=== PATIENT | male | born 1935 | race Caucasian/White ===

== ENCOUNTER → 2018-03-27 | Outpatient (CLI) | payer MEDICARE ==
[~2018-03-27] MED LIST: ALLO300 PO; AMLO5 PO; ASPI81CH PO; BLOOD PRESSURE MED; Cinnamon500 MG; DOXA1 PO; FISH1000 PO; Flomax0.4 MG PO; HYDACE5 PO; HYOS0.375T PO; INDO50 PO; MAGOXI400; Multiple Vitam1 EAC1; OMEP20ER PO; Prinivil10 MG PO; SOLI5
== END ==
LOC: PLD 12:28 → LAB SHORT 12:28
DX: D48.5 Neoplasm of uncertain behavior of skin (principal)
CPT/HCPCS: 88305; 88312

== ENCOUNTER 2018-10-02 07:10 | Day surgery (SDC) | payer MEDICARE ==
[~2018-10-02] VITALS: Ht 175.3 cm; Wt 89.3 kg
== END 2018-10-02 08:44 | disposition home or self-care (01) ==
LOC: ORSCSDS 07:10
PROVIDERS: Internal Medicine Gastroenterology
PROC: 0D758ZZ Dilation of Esophagus, Via Natural or Artificial Opening Endoscopic (ICD-10-PCS; principal; 2018-10-02 08:30)
PROC: 0DB58ZX Excision of Esophagus, Via Natural or Artificial Opening Endoscopic, Diagnostic (ICD-10-PCS; principal; 2018-10-02 08:30)
PROC: 0DB68ZX Excision of Stomach, Via Natural or Artificial Opening Endoscopic, Diagnostic (ICD-10-PCS; principal; 2018-10-02 08:30)
DX: R13.10 Dysphagia, unspecified (principal); K21.9 Gastro-esophageal reflux disease without esophagitis; K22.70 Barrett's esophagus without dysplasia; K31.7 Polyp of stomach and duodenum; K44.9 Diaphragmatic hernia without obstruction or gangrene; I10 Essential (primary) hypertension; G20 Parkinson's disease; Z79.82 Long term (current) use of aspirin; E78.00 Pure hypercholesterolemia, unspecified; Z79.899 Other long term (current) drug therapy
CPT/HCPCS: 88305; 88342; J7120

== ENCOUNTER 2019-05-12 06:34 | Day surgery (SDC) | payer MEDICARE ==
[~2019-05-12] VITALS: Ht 172.7 cm; Wt 84.3 kg
[~2019-05-12 06:34] MED LIST changes: +ALLO100 PO; +Cinnamon500 MG PO; +FLAX FISH PO; +MOTRIN IB200 MG PO; +MYRBETRIQ25 MG; +MYRBETRIQ50 MG PO; +Miralax17 GM PO; +NYSTRITC; +Nystatin15 GM TOP; +RYTARY ER 36.21 EACH PO; +RYTARY ER 61.21 EACH; +TAMS.4ER PO; +[UNRECOGNIZED DRUG - OTHER] PO
--- NOTE | 2019-05-12 07:42 | NUR ---
05/12/19 0742 LUCIANO BEAULIEU 1 IV ATTEMPT VEIN BLEW BY MARÍA ELENA 2 IV ATTEMPT VEIN BLEW BY MARÍA ELENA 3RD ATTEMPT SUCCESSFUL BY RN
--- NOTE | 2019-05-12 10:51 | NUR ---
05/12/19 1051 Maddie Tomlinson SIMETHICONE USED DURING PROCEDURE.
== END 2019-05-12 12:00 | disposition home or self-care (01) ==
LOC: ORSCSDS 06:34
PROVIDERS: Internal Medicine Gastroenterology
PROC: 0DBM8ZX Excision of Descending Colon, Via Natural or Artificial Opening Endoscopic, Diagnostic (ICD-10-PCS; principal; 2019-05-12 08:00)
PROC: 0DBK8ZX Excision of Ascending Colon, Via Natural or Artificial Opening Endoscopic, Diagnostic (ICD-10-PCS; principal; 2019-05-12 08:00)
DX: Z12.11 Encounter for screening for malignant neoplasm of colon (principal); Z86.010 Personal history of colon polyps; D12.2 Benign neoplasm of ascending colon; D12.4 Benign neoplasm of descending colon; K57.30 Diverticulosis of large intestine without perforation or abscess without bleeding; K64.8 Other hemorrhoids; I10 Essential (primary) hypertension; G20 Parkinson's disease; E78.00 Pure hypercholesterolemia, unspecified; Z79.899 Other long term (current) drug therapy; Z79.82 Long term (current) use of aspirin
CPT/HCPCS: 88305; J2405; J2704; J7120

== ENCOUNTER → 2021-05-05 | Outpatient (CLI) | payer MEDICARE ==
[2021-05-11 13:59] LABS: Stool Occult Bld Immuno 1 Negative (NEGATIVE)
== END | disposition home or self-care (01) ==
LOC: LAB SHORT 10:30
PROVIDERS: Family Medicine
DX: Z12.11 Encounter for screening for malignant neoplasm of colon (principal)
CPT/HCPCS: G0328

== ENCOUNTER 2021-09-05 09:52 | Day surgery (SDC) | payer MEDICARE ==
[~2021-09-05] VITALS: Ht 168 cm; Wt 80.7 kg
--- NOTE | 2021-09-05 12:36 | NUR ---
History, Chart, Medications and Allergies reviewed before start of procedure.Patient confirms NPO status and agrees with scheduled surgery. Patient states colon prep results clear.
--- NOTE | 2021-09-05 12:44 | NUR ---
09/05/21 1244 Ghada Castellanos History, Chart, Medications and Allergies reviewed before start of procedure. Patient confirms NPO status and agrees with scheduled surgery. 3-LEAD EKG REVIEWED WITH PHYSICIAN PRIOR TO START OF PROCEDURE. MONITOR INTACT WITH CONTINUOUS PULSE OXIMETRY AND INTERMITTENT BP. PATIENT DETERMINED TO BE ASA APPROPRIATE FOR PROPOFOL SEDATION PRIOR TO START OF PROCEDURE BY DR. CONTRERAS.
--- NOTE | 2021-09-05 13:59 | NUR ---
Discharge instructions reviewed with patient. Patient verbalizes understanding. Copy given to patient to take home. Discharged via wheelchair to private car for ride home.
== END 2021-09-05 22:51 | disposition home or self-care (01) ==
LOC: ORSCMMR 09:52 → ORD 12:15 → ORSCMMR 22:51
PROVIDERS: Internal Medicine Gastroenterology
PROC: 0DJD8ZZ Inspection of Lower Intestinal Tract, Via Natural or Artificial Opening Endoscopic (ICD-10-PCS; principal; 2021-09-05 12:15)
PROC: 0D758ZZ Dilation of Esophagus, Via Natural or Artificial Opening Endoscopic (ICD-10-PCS; 2021-09-05 12:15)
PROC: 0DB58ZX Excision of Esophagus, Via Natural or Artificial Opening Endoscopic, Diagnostic (ICD-10-PCS; 2021-09-05 12:15)
DX: R13.10 Dysphagia, unspecified (principal); Z12.11 Encounter for screening for malignant neoplasm of colon; K22.70 Barrett's esophagus without dysplasia; Z86.010 Personal history of colon polyps; E78.00 Pure hypercholesterolemia, unspecified; K21.9 Gastro-esophageal reflux disease without esophagitis; K44.9 Diaphragmatic hernia without obstruction or gangrene; K64.4 Residual hemorrhoidal skin tags; Z79.899 Other long term (current) drug therapy
CPT/HCPCS: 88305; J2704; J7120

== ENCOUNTER 2023-06-04 06:36 | Day surgery (SDC) | payer OTHER ==
[~2023-06-04] VITALS: Ht 172.7 cm; Wt 78.4 kg
[2023-06-04] MEDS ORDERED: DICLOFENAC SOD100 GM TP (07:09)
[2023-06-04] MEDS ORDERED: TIMDOROPSO (07:10)
[2023-06-04] MEDS ORDERED: NYSTRIT (07:10)
[2023-06-04] MEDS ORDERED: OXYB5 (07:10)
--- NOTE | 2023-06-04 08:36 | NUR ---
06/04/23 0836 CamarilloRayna son 56 ATTEMPTED
[2023-06-04 09:01] VITALS: BP 135/83
== END 2023-06-04 09:06 | disposition home or self-care (01) ==
LOC: ORSCSDS 06:36
PROVIDERS: Internal Medicine Gastroenterology
PROC: 0D758ZZ Dilation of Esophagus, Via Natural or Artificial Opening Endoscopic (ICD-10-PCS; principal; 2023-06-04 08:00)
PROC: 0D757ZZ Dilation of Esophagus, Via Natural or Artificial Opening (ICD-10-PCS; principal; 2023-06-04 08:00)
DX: K22.70 Barrett's esophagus without dysplasia (principal); R13.10 Dysphagia, unspecified; K44.9 Diaphragmatic hernia without obstruction or gangrene; K22.89 Other specified disease of esophagus; K21.9 Gastro-esophageal reflux disease without esophagitis; I10 Essential (primary) hypertension; G20 Parkinson's disease; E78.00 Pure hypercholesterolemia, unspecified; Z79.899 Other long term (current) drug therapy
CPT/HCPCS: J2704; J7120

== ENCOUNTER → 2023-10-23 | Outpatient (CLI) | payer OTHER ==
[~2023-10-23] MED LIST changes: +DICLOFENAC SOD100 GM TP; +NYSTRIT; +OXYB5; +TIMDOROPSO
== END ==
LOC: LAB 11:48 → LAB SHORT 11:48
DX: L57.0 Actinic keratosis (principal)
CPT/HCPCS: 88305

== ENCOUNTER 2024-04-17 14:31 | Emergency (ER) | payer OTHER ==
[~2024-04-17] VITALS: Ht 172.7 cm; Wt 79.4 kg
[2024-04-17] MEDS ORDERED: Roxicodone5 MG PO (17:19)
[2024-04-17] MEDS ORDERED: Docusate Sodium 100 MG Cap PO ONE (17:20)
[2024-04-17] MEDS ORDERED: OxyCODONE HCL 5 MG TAB PO ONE (17:20)
[2024-04-17 17:41] VITALS: BP 186/96
== END 2024-04-17 17:54 | disposition home or self-care (01) ==
LOC: ER 14:31
DX: S39.012A Strain of muscle, fascia and tendon of lower back, initial encounter (principal); M51.35 Other intervertebral disc degeneration, thoracolumbar region; V86.95XA Unspecified occupant of 3- or 4- wheeled all-terrain vehicle (ATV) injured in nontraffic accident, initial encounter; K21.9 Gastro-esophageal reflux disease without esophagitis; I10 Essential (primary) hypertension; Z88.6 Allergy status to analgesic agent; Z88.8 Allergy status to other drugs, medicaments and biological substances; Z79.899 Other long term (current) drug therapy
CPT/HCPCS: 72131; 99284-25; A9270

== ENCOUNTER 2024-04-18 20:59 | Emergency (ER) | payer OTHER ==
[~2024-04-18] VITALS: Ht 172.7 cm; Wt 81.7 kg
[~2024-04-18 20:59] MED LIST changes: +Roxicodone5 MG PO
[2024-04-18 21:23] LABS: Source, Urine Clean Catch
[2024-04-18 21:28] LABS: Appearance, Urine Clear (Clear); Bilirubin, Urine Neg (Neg); Blood, Urine Neg (Neg); Color, Urine Yellow (P-Yellow); Glucose Qualitative, Urine Neg (Neg); Ketones, Urine 1+ (Neg); Leukocyte Esterase, Urine 2+ (Neg); Nitrite, Urine Neg (Neg); Protein, Urine 1+ (Neg); Specific Gravity, Urine 1.015 (1.003-1.022); Urobilinogen, Urine NORM (Normal)
[2024-04-18 21:35] LABS: BASOPHILS ABSOLUTE AUTO 0.07 K/mm3 (0.00-0.23); BASOPHILS PERCENT AUTO 1 % (0-2); EOSINOPHILS ABSOLUTE AUTO 0.14 K/mm3 (0.00-0.68); EOSINOPHILS PERCENT AUTO 2 % (0-6); Hematocrit 41.7 % (37.0-53.0); Hemoglobin 14.1 g/dL (13.5-17.5); IMMATURE GRAN ABSOLUTE AUTO 0.03 K/mm3 (0.00-0.10); IMMATURE GRAN PERCENT AUTO 0 % (0-1); LYMPHOCYTES ABSOLUTE AUTO 1.62 K/mm3 (0.84-5.20); LYMPHOCYTES PERCENT AUTO 18 % (21-46); MONOCYTES ABSOLUTE AUTO 0.65 K/mm3 (0.16-1.47); MONOCYTES PERCENT AUTO 7 % (4-13); Mean Corpuscular HGB 31.7 pg (26.0-34.0); Mean Corpuscular HGB Conc 33.8 g/dL (31.5-36.5); Mean Corpuscular Volume 94 fL (80-100); Mean Platelet Volume 11.5 fL (9.1-12.4); NEUTROPHILS PERCENT AUTO 72 % (41-73); Platelet Count 236 K/mm3 (150-400); RDW Coefficient Variation 14.4 % (11.7-14.2); RDW Standard Deviation 49.8 fL (35.1-46.3); Red Blood Cell Count 4.45 M/mm3 (4.30-5.90); White Blood Cell Count 8.91 K/mm3 (4.00-11.30)
[2024-04-18 21:39] LABS: Amorphous Light (0-Heavy); Bacteria Few /hpf; Mucus Light (0-Heavy); Red Blood Cells, Urine Not Seen /hpf (0-2); Squamous Epithelial Cells Rare /hpf (Few); White Blood Cells, Urine 0-2 /hpf (0-5)
[2024-04-18 21:40] LABS: Hyaline Casts 0-2 /lpf (0-2)
[2024-04-18 21:57] LABS: Alanine Aminotransfer (ALT/SGP <6 U/L (12-78); Albumin, Blood 3.6 g/dL (3.4-5.0); Albumin/Globulin Ratio 1.1 (0.8-1.8); Alk Phos 68 U/L (50-136); Anion Gap 9 mmol/L (3-11); Aspartate Aminotrans (AST/SGOT 15 U/L (12-37); Blood Urea Nitrogen 26 mg/dL (8-24); Bun/Creatinine Ratio 24.8 (12.0-20.0); CO2, Blood 25 mmol/L (21-32); Calcium, Blood 8.8 mg/dL (8.5-10.1); Chloride, Blood 110 mmol/L (98-108); Creatinine, Blood 1.05 mg/dL (0.60-1.20); Globulin, Blood 3.4 g/dL (2.2-4.0); Glomerular Filtration Rate 69 (60-); Glucose, Blood 123 mg/dL (70-99); Potassium, Blood 4.2 mmol/L (3.5-5.5); Sodium, Blood 140 mmol/L (136-145)
[2024-04-19] VITALS: BP 127/73
[2024-04-19] MEDS ORDERED: Acetaminophen 325 MG TABLET PO ONE (00:35)
[2024-04-19] MEDS ORDERED: Lidocaine 4% 1 Patch TOP ONE (00:35)
[2024-04-19] MEDS ORDERED: RX Prepack 6 Tabs Oxycodone 5mg UD ONE (01:25)
[2024-04-19] MEDS ORDERED: LIDO700A20 TOP (01:26)
== END 2024-04-19 01:45 | disposition home or self-care (01) ==
LOC: ER 20:59
PROVIDERS: Emergency Medicine
DX: M54.50 Low back pain, unspecified (principal); Z88.8 Allergy status to other drugs, medicaments and biological substances; Z88.6 Allergy status to analgesic agent; Z79.899 Other long term (current) drug therapy; K21.9 Gastro-esophageal reflux disease without esophagitis; I10 Essential (primary) hypertension
CPT/HCPCS: 80053; 81001; 85025; 87086; 99284; A9270

== ENCOUNTER 2024-05-03 17:53 | Emergency (ER) | payer OTHER ==
[~2024-05-03] VITALS: Ht 172.7 cm; Wt 80.7 kg
[~2024-05-03 17:53] MED LIST changes: +LIDO700A20 TOP
[2024-05-03] MEDS ORDERED: CARBLEV25 SL (18:08)
[2024-05-03] MEDS ORDERED: CELE200 PO (18:11)
[2024-05-03] MEDS ORDERED: ANASPAZ0.125 MG PO (18:12)
[2024-05-03] MEDS ORDERED: TRIDERM28.4 GM TOP (18:13)
[2024-05-03] MEDS ORDERED: METAMUCIL POWD798 GM PO (18:14)
[2024-05-03] MEDS ORDERED: COLACE100 MG PO (18:14)
[2024-05-03] MEDS ORDERED: KETO15TC TOP (18:14)
[2024-05-03] MEDS ORDERED: DULCOLAX400 MG/5 M PO (18:15)
[2024-05-03] MEDS ORDERED: ASPI81CH PO (18:15)
[2024-05-03] MEDS ORDERED: SILDENAFIL CITR50 MG PO (18:17)
[2024-05-03] MEDS ORDERED: ROWEEPRA XR500 MG PO (18:17)
[2024-05-03 18:44] VITALS: BP 136/84
[2024-05-03] MEDS ORDERED: OXYC5 PO (18:44)
[2024-05-03] MEDS ORDERED: OxyCODONE HCL 5 MG TAB PO ONE (18:45)
== END 2024-05-03 18:59 | disposition home or self-care (01) ==
LOC: ER 17:53
DX: S30.0XXA Contusion of lower back and pelvis, initial encounter (principal); V86.55XA Driver of 3- or 4- wheeled all-terrain vehicle (ATV) injured in nontraffic accident, initial encounter; Z88.6 Allergy status to analgesic agent; Z88.8 Allergy status to other drugs, medicaments and biological substances; Z79.899 Other long term (current) drug therapy; Z79.82 Long term (current) use of aspirin
CPT/HCPCS: 99284; A9270

== ENCOUNTER 2024-05-06 09:44 | Emergency (ER) | payer OTHER ==
[~2024-05-06] VITALS: Ht 172.7 cm; Wt 81.7 kg
[~2024-05-06 09:44] MED LIST changes: +ANASPAZ0.125 MG PO; +CARBLEV25 SL; +CELE200 PO; +COLACE100 MG PO; +DULCOLAX400 MG/5 M PO; +KETO15TC TOP; +METAMUCIL POWD798 GM PO; +OXYC5 PO; +ROWEEPRA XR500 MG PO; +SILDENAFIL CITR50 MG PO; +TRIDERM28.4 GM TOP
[2024-05-06 11:20] VITALS: BP 120/93
== END 2024-05-06 11:52 | disposition home or self-care (01) ==
LOC: ER 09:44
DX: M54.16 Radiculopathy, lumbar region (principal); Z88.6 Allergy status to analgesic agent; Z88.8 Allergy status to other drugs, medicaments and biological substances; Z79.82 Long term (current) use of aspirin; Z79.899 Other long term (current) drug therapy
CPT/HCPCS: 99283

== ENCOUNTER 2024-05-08 18:41 | Emergency (ER) | payer OTHER ==
[~2024-05-08] VITALS: Ht 172.7 cm; Wt 81.7 kg
[2024-05-08 18:45] VITALS: BP 107/73
[2024-05-08 20:20] LABS: BASOPHILS ABSOLUTE AUTO 0.06 K/mm3 (0.00-0.23); BASOPHILS PERCENT AUTO 1 % (0-2); EOSINOPHILS ABSOLUTE AUTO 0.23 K/mm3 (0.00-0.68); EOSINOPHILS PERCENT AUTO 3 % (0-6); Hematocrit 36.6 % (37.0-53.0); Hemoglobin 12.3 g/dL (13.5-17.5); IMMATURE GRAN ABSOLUTE AUTO 0.02 K/mm3 (0.00-0.10); IMMATURE GRAN PERCENT AUTO 0 % (0-1); LYMPHOCYTES ABSOLUTE AUTO 1.12 K/mm3 (0.84-5.20); LYMPHOCYTES PERCENT AUTO 17 % (21-46); MONOCYTES ABSOLUTE AUTO 0.62 K/mm3 (0.16-1.47); MONOCYTES PERCENT AUTO 9 % (4-13); Mean Corpuscular HGB 31.6 pg (26.0-34.0); Mean Corpuscular HGB Conc 33.6 g/dL (31.5-36.5); Mean Corpuscular Volume 94 fL (80-100); Mean Platelet Volume 11.6 fL (9.1-12.4); NEUTROPHILS ABSOLUTE AUTO 4.68 K/mm3 (1.96-9.15); NEUTROPHILS PERCENT AUTO 70 % (41-73); Platelet Count 238 K/mm3 (150-400); RDW Coefficient Variation 14.6 % (11.7-14.2); RDW Standard Deviation 50.1 fL (35.1-46.3); Red Blood Cell Count 3.89 M/mm3 (4.30-5.90); White Blood Cell Count 6.73 K/mm3 (4.00-11.30)
[2024-05-08 20:39] LABS: Albumin, Blood 3.6 g/dL (3.4-5.0); Albumin/Globulin Ratio 1.2 (0.8-1.8); Bilirubin, Total 0.7 mg/dL (0.1-1.0); Bun/Creatinine Ratio 22.4 (12.0-20.0); Calcium, Blood 9.7 mg/dL (8.5-10.1); Creatinine, Blood 2.01 mg/dL (0.60-1.20); Potassium, Blood 4.2 mmol/L (3.5-5.5); Total Protein, Blood 6.6 g/dL (6.4-8.2)
[2024-05-08 21:34] LABS: Source, Urine Clean Catch
[2024-05-08 21:46] LABS: Appearance, Urine Clear (Clear); Bilirubin, Urine Neg (Neg); Blood, Urine 1+ (Neg); Color, Urine Yellow (P-Yellow); Glucose Qualitative, Urine Neg (Neg); Ketones, Urine 1+ (Neg); Leukocyte Esterase, Urine Neg (Neg); Nitrite, Urine Neg (Neg); Protein, Urine 2+ (Neg); Specific Gravity, Urine 1.015 (1.003-1.022); Urobilinogen, Urine NORM (Normal)
[2024-05-08] MEDS ORDERED: NS 1,000 ML IV SCH (22:00)
[2024-05-08 22:08] LABS: Bacteria Few /hpf; Red Blood Cells, Urine 0-2 /hpf (0-2); Squamous Epithelial Cells Few /hpf (Few); White Blood Cells, Urine 0-2 /hpf (0-5)
== END 2024-05-08 22:46 | disposition home or self-care (01) ==
LOC: ER 18:41
PROVIDERS: Student in an Organized Health Care Education/Training Program
DX: N17.9 Acute kidney failure, unspecified (principal); Z88.6 Allergy status to analgesic agent; Z88.8 Allergy status to other drugs, medicaments and biological substances; Z79.899 Other long term (current) drug therapy; Z79.82 Long term (current) use of aspirin; K21.9 Gastro-esophageal reflux disease without esophagitis; I10 Essential (primary) hypertension
CPT/HCPCS: 80053; 81001; 85025; 99283; J7030

== ENCOUNTER 2024-05-11 19:24 | Emergency (ER) | payer OTHER ==
[~2024-05-11] VITALS: Ht 172.7 cm; Wt 86.2 kg
[2024-05-11 20:51] LABS: BASOPHILS ABSOLUTE AUTO 0.05 K/mm3 (0.00-0.23); BASOPHILS PERCENT AUTO 1 % (0-2); EOSINOPHILS ABSOLUTE AUTO 0.13 K/mm3 (0.00-0.68); EOSINOPHILS PERCENT AUTO 2 % (0-6); Hematocrit 34.8 % (37.0-53.0); Hemoglobin 11.7 g/dL (13.5-17.5); IMMATURE GRAN ABSOLUTE AUTO 0.02 K/mm3 (0.00-0.10); IMMATURE GRAN PERCENT AUTO 0 % (0-1); LYMPHOCYTES ABSOLUTE AUTO 1.23 K/mm3 (0.84-5.20); LYMPHOCYTES PERCENT AUTO 19 % (21-46); MONOCYTES ABSOLUTE AUTO 0.82 K/mm3 (0.16-1.47); MONOCYTES PERCENT AUTO 13 % (4-13); Mean Corpuscular HGB 32.1 pg (26.0-34.0); Mean Corpuscular HGB Conc 33.6 g/dL (31.5-36.5); Mean Corpuscular Volume 95 fL (80-100); NEUTROPHILS ABSOLUTE AUTO 4.24 K/mm3 (1.96-9.15); NEUTROPHILS PERCENT AUTO 65 % (41-73); Platelet Count 227 K/mm3 (150-400); RDW Coefficient Variation 14.6 % (11.7-14.2); RDW Standard Deviation 50.8 fL (35.1-46.3); Red Blood Cell Count 3.65 M/mm3 (4.30-5.90); White Blood Cell Count 6.49 K/mm3 (4.00-11.30)
[2024-05-11 21:00] LABS: Albumin, Blood 3.5 g/dL (3.4-5.0); Albumin/Globulin Ratio 1.2 (0.8-1.8); Bilirubin, Total 0.9 mg/dL (0.1-1.0); Bun/Creatinine Ratio 21.5 (12.0-20.0); Calcium, Blood 9.2 mg/dL (8.5-10.1); Creatinine, Blood 1.95 mg/dL (0.60-1.20); Potassium, Blood 3.7 mmol/L (3.5-5.5); Total Protein, Blood 6.5 g/dL (6.4-8.2)
[2024-05-11 21:44] LABS: Source, Urine Straight Cath
[2024-05-11 21:58] LABS: Bilirubin, Urine Neg (Neg); Blood, Urine 1+ (Neg); Glucose Qualitative, Urine Neg (Neg); Ketones, Urine Neg (Neg); Leukocyte Esterase, Urine Neg (Neg); Nitrite, Urine Neg (Neg); Protein, Urine Neg (Neg); Urobilinogen, Urine NORM (Normal)
[2024-05-11 22:02] LABS: Color, Urine Yellow (P-Yellow)
[2024-05-11 22:03] LABS: Appearance, Urine Clear (Clear)
[2024-05-11 22:04] LABS: Bacteria Few /hpf; Red Blood Cells, Urine 0-2 /hpf (0-2); Squamous Epithelial Cells Few /hpf (Few); White Blood Cells, Urine 0-2 /hpf (0-5)
[2024-05-11] MEDS ORDERED: OLANZapine 10 MG Vial IM ONE (23:30)
[2024-05-12] MEDS ORDERED: OLANZapine 10 MG Vial IM ONE (01:40)
[2024-05-12 15:47] VITALS: BP 153/87
[2024-05-12] MEDS ORDERED: Seroquel Xr50 MG PO (16:51)
== END 2024-05-12 17:05 | disposition home or self-care (01) ==
LOC: ER 19:24
PROVIDERS: Emergency Medicine
DX: R41.82 Altered mental status, unspecified (principal); K21.9 Gastro-esophageal reflux disease without esophagitis; I10 Essential (primary) hypertension; N40.0 Benign prostatic hyperplasia without lower urinary tract symptoms; G20.A1 Parkinson's disease without dyskinesia, without mention of fluctuations; F02.80 Dementia in other diseases classified elsewhere, unspecified severity, without behavioral disturbance, psychotic disturbance, mood disturbance, and anxiety; Z88.8 Allergy status to other drugs, medicaments and biological substances; Z79.82 Long term (current) use of aspirin; Z79.899 Other long term (current) drug therapy
CPT/HCPCS: 70450; 80053; 81001; 85025

== ENCOUNTER → 2024-07-10 | Outpatient (CLI) | payer OTHER ==
[~2024-07-10] MED LIST changes: +Seroquel Xr50 MG PO
== END | disposition home or self-care (01) ==
LOC: LAB 08:40 → LAB SHORT 08:40
DX: R31.9 Hematuria, unspecified (principal)
CPT/HCPCS: 87086

== ENCOUNTER 2024-11-05 11:28 | Emergency (ER) | payer OTHER ==
[~2024-11-05] VITALS: Ht 177.8 cm; Wt 79.4 kg
[2024-11-05 12:14] LABS: BASOPHILS ABSOLUTE AUTO 0.06 K/mm3 (0.00-0.23); BASOPHILS PERCENT AUTO 1 % (0-2); EOSINOPHILS ABSOLUTE AUTO 0.25 K/mm3 (0.00-0.68); EOSINOPHILS PERCENT AUTO 4 % (0-6); Hematocrit 36.8 % (37.0-53.0); Hemoglobin 12.2 g/dL (13.5-17.5); IMMATURE GRAN ABSOLUTE AUTO 0.01 K/mm3 (0.00-0.10); IMMATURE GRAN PERCENT AUTO 0 % (0-1); LYMPHOCYTES ABSOLUTE AUTO 1.48 K/mm3 (0.84-5.20); LYMPHOCYTES PERCENT AUTO 25 % (21-46); MONOCYTES ABSOLUTE AUTO 0.39 K/mm3 (0.16-1.47); MONOCYTES PERCENT AUTO 7 % (4-13); Mean Corpuscular HGB 32.1 pg (26.0-34.0); Mean Corpuscular HGB Conc 33.2 g/dL (31.5-36.5); Mean Corpuscular Volume 97 fL (80-100); Mean Platelet Volume 11.1 fL (9.1-12.4); NEUTROPHILS ABSOLUTE AUTO 3.81 K/mm3 (1.96-9.15); NEUTROPHILS PERCENT AUTO 63 % (41-73); Platelet Count 222 K/mm3 (150-400); RDW Coefficient Variation 14.8 % (11.7-14.2); RDW Standard Deviation 51.6 fL (35.1-46.3)
[2024-11-05 12:40] LABS: Albumin, Blood 3.4 g/dL (3.4-5.0); Albumin/Globulin Ratio 1.1 (0.8-1.8); Bilirubin, Total 0.5 mg/dL (0.1-1.0); Bun/Creatinine Ratio 25.5 (12.0-20.0); Calcium, Blood 9.2 mg/dL (8.5-10.1); Creatinine, Blood 1.06 mg/dL (0.60-1.20); Globulin, Blood 3.1 g/dL (2.2-4.0); Potassium, Blood 4.3 mmol/L (3.5-5.5); Total Protein, Blood 6.5 g/dL (6.4-8.2)
[2024-11-05 15:05] LABS: Source, Urine Voided
[2024-11-05 15:11] LABS: Appearance, Urine Clear (Clear); Bilirubin, Urine Neg (Neg); Blood, Urine Neg (Neg); Color, Urine Yellow (P-Yellow); Glucose Qualitative, Urine Neg (Neg); Ketones, Urine 1+ (Neg); Leukocyte Esterase, Urine Neg (Neg); Nitrite, Urine Neg (Neg); Protein, Urine Neg (Neg); Specific Gravity, Urine 1.015 (1.003-1.022); Urobilinogen, Urine NORM (Normal)
[2024-11-05] MEDS ORDERED: Acetaminophen 325 MG TABLET PO ONE (15:40)
[2024-11-05 15:58] VITALS: BP 152/92
== END 2024-11-05 16:32 | disposition home or self-care (01) ==
LOC: ER 11:28
PROVIDERS: Emergency Medicine
DX: R53.1 Weakness (principal); K21.9 Gastro-esophageal reflux disease without esophagitis; I10 Essential (primary) hypertension; Z79.899 Other long term (current) drug therapy; Z79.82 Long term (current) use of aspirin; Z88.6 Allergy status to analgesic agent; Z88.8 Allergy status to other drugs, medicaments and biological substances
CPT/HCPCS: 70450; 80053; 81003; 85025; 93005; 93010; 99284-25